=== PATIENT | male | born 1935 | race African-American/Black ===

== ENCOUNTER 2017-04-22 09:05 | Inpatient (IN) | payer OTHER, MEDICAID ==
[~2017-04-22] VITALS: Ht 182.9 cm; Wt 101.6 kg
[~2017-04-22 09:05] MED LIST: ALBUTEROL SULF8.5 GM INH; ASPIR 8181 MG ORAL; BENAZEPRIL HCL40 MG ORAL; CARVEDILOL25 MG ORAL; FUROSEMIDE80 MG ORAL; GUAIFENESIN-CO118 M1 ORAL; GUAIFENESIN-COD10 ML PO; MINOCYCLINE HC100 MG PO; PRAVASTATIN SOD20 M1 ORAL; QVAR7.3 GM INH
[2017-04-22] MEDS ORDERED: TORSEMIDE20 MG ORAL (09:41)
[2017-04-22] MEDS ORDERED: METRONIDAZOLE45 G2 TOPIC (09:41)
[2017-04-22] MEDS ORDERED: BENAZEPRIL HCL10 MG ORAL (09:41)
[2017-04-22] MEDS ORDERED: CARVEDILOL3.125 MG ORAL (09:41)
[2017-04-22] MEDS ORDERED: BRIMONIDINE TART5 ML LEFT EYE (09:41)
[2017-04-22] MEDS ORDERED: PRAVACHOL40 MG ORAL (09:41)
[2017-04-22] MEDS ORDERED: TRAVATAN Z5 ML OP (09:41)
[2017-04-22] MEDS ORDERED: CLARAVIS10 MG PO (09:41)
[2017-04-22] MEDS ORDERED: BAYER BACK & B1 EACH PO (09:41)
[2017-04-22] MEDS ORDERED: Acetaminophen 500mg (ES) tab ORAL ONE (09:45)
--- NOTE | 2017-04-22 09:52 | Emergency Room Report ---
History of Present Illness General Chief Complaint: General Complaint Source: Patient Present Illness HPI Patient is an 81-year-old male presented after increased generalized weakness. He reported having increased gagging sensation. He had increased difficulty breathing. Patient was noted to have prior history of congestive heart failure Allergies: Coded Allergies: No Known Allergies (Verified , 05/20/06) Patient History Reviewed Nursing Documentation: PMH: Agreed, PSxH: Agreed Nursing Documentation-PMH Hx Cardiac Problems: Yes - CHF Hx Hypertension: Yes Hx Cancer: Yes - prostate, colon Review of Systems All Other Systems: negative except mentioned in HPI Physical Exam Vital Signs Date Time Temp Pulse Resp B/P (MAP) Pulse Ox O2 Delivery O2 Flow Rate FiO2 04/22/17 09:28 101.7 99 19 136/75 97 Room Air Sp02 EP Interpretation: reviewed, normal General Appearance: normal inspection, well appearing, no apparent distress, alert, GCS 15 Head: atraumatic ENT: normal ENT inspection, hearing grossly normal, normal voice Neck: normal inspection, full range of motion, supple, no bony tend Respiratory: normal inspection, lungs clear, normal breath sounds, no respiratory distress, no retraction, no wheezing Cardiovascular #1: regular rate, rhythm, no edema Gastrointestinal: normal inspection, normal bowel sounds, non tender, soft, no guarding, no hernia Genitourinary: no CVA tenderness Musculoskeletal: normal inspection, back normal, normal range of motion, swelling Neurologic: normal inspection, alert, oriented x3, responsive, speech normal Psychiatric: normal inspection, judgement/insight normal, mood/affect normal Skin: normal inspection, normal color, no rash Medical Decision Making Diagnostic Impression: Primary Impression: Heart failure Additional Impressions: Acute febrile illness CHF (congestive heart failure) Influenza A ER Course Patient presented for fever and difficulty breathing. Differential diagnosis included wasn't limited to influenza, pneumonia, urinary tract infection, drug fever, allergic reaction, sepsis, cholecystitis, among others.Because of complexity of patient's case laboratory testing and imaging studies were ordered.The patient was noted to be febrile. Influenza A was positive. The patient's BNP was noted be elevated at consistent with prior history of CHF. Dr. Nguyễn Mcguire was contacted for inpatient management. A chest x-ray one view interpreted by [place] showed no evident cardiomegaly or pulmonary infiltrates. Labs Test 04/22/17 10:20 04/22/17 10:30 White Blood Count 7.1 K/UL (4.8-10.8) Red Blood Count 5.34 M/UL (4.70-6.10) Hemoglobin 13.4 G/DL (14.2-18.0) Hematocrit 43.2 % (42.0-52.0) Mean Corpuscular Volume 81 FL (80-99) Mean Corpuscular Hemoglobin 25.2 PG (27.0-31.0) Mean Corpuscular Hemoglobin Concent 31.1 G/DL (32.0-36.0) Red Cell Distribution Width 15.0 % (11.6-14.8) Platelet Count 204 K/UL (150-450) Mean Platelet Volume 9.3 FL (6.5-10.1) Neutrophils (%) (Auto) 76.7 % (45.0-75.0) Lymphocytes (%) (Auto) 10.4 % (20.0-45.0) Monocytes (%) (Auto) 10.3 % (1.0-10.0) Eosinophils (%) (Auto) 0.8 % (0.0-3.0) Basophils (%) (Auto) 1.9 % (0.0-2.0) Urine Color Yellow Urine Appearance Clear Urine pH 7 (4.5-8.0) Urine Specific [place] 1.005 (1.005-1.035) Urine Protein Negative (NEGATIVE) Urine Glucose (UA) Negative (NEGATIVE) Urine Ketones Negative (NEGATIVE) Urine Occult Blood Negative (NEGATIVE) Urine Nitrite Negative (NEGATIVE) Urine Bilirubin Negative (NEGATIVE) Urine Urobilinogen Normal MG/DL (0.0-1.0) Urine Leukocyte Esterase Negative (NEGATIVE) Sodium Level 136 MMOL/L (136-145) Potassium Level 4.0 MMOL/L (3.5-5.1) Chloride Level 98 MMOL/L (98-107) Carbon Dioxide Level 30 MMOL/L (21-32) Blood Urea Nitrogen 10 mg/dL (7-18) Creatinine 1.0 MG/DL (0.55-1.30) Estimat Glomerular Filtration Rate mL/min (>60) Glucose Level 100 MG/DL (74-106) Calcium Level 8.1 MG/DL (8.5-10.1) Total Bilirubin 0.3 MG/DL (0.2-1.0) Aspartate Amino Transf (AST/SGOT) 30 U/L (15-37) Alanine Aminotransferase (ALT/SGPT) 31 U/L (12-78) Alkaline Phosphatase 107 U/L (46-116) Total Creatine Kinase 118 U/L (26-308) Creatine Kinase MB 1.2 NG/ML (0.0-3.6) Creatine Kinase MB Relative Index 1.0 Troponin I 0.016 ng/mL (0.000-0.056) Total Protein 8.3 G/DL (6.4-8.2) Albumin 3.2 G/DL (3.4-5.0) Globulin 5.1 g/dL Albumin/Globulin Ratio 0.6 (1.0-2.7) Lactic Acid Level 1.00 mmol/L (0.66-2.22) Pro-B-Type Natriuretic Peptide 5165 pg/mL (0-125) EKG Diagnostic Results Rate: normal - 96 Rhythm: NSR ST Segments: no acute changes Rhythm Strip Diag. Results EP Interpretation: yes Rhythm: NSR, no PVC's, no ectopy Last Vital Signs Date Time Temp Pulse Resp B/P (MAP) Pulse Ox O2 Delivery O2 Flow Rate FiO2 04/22/17 09:28 101.7 99 19 136/75 97 Room Air Status: unchanged Disposition: ADMITTED INPATIENT Condition: Serious Ferny Richardson Apr 22, 2017 09:52
--- NOTE | 2017-04-22 10:33 | Diagnostic Imaging Report ---
Indication: Reason For Exam: SOB Technique: XRAY Chest 1v. Comparison: 05/17/2015 Findings: The cardiomediastinal silhouette is stable. There are no acute infiltrates. No pleural fluid. Bony structures are unremarkable. Impression: No acute abnormality. Stable chest. .
[2017-04-22 10:44] VITALS: BP 136/75
[2017-04-22 10:59] LABS: BASOPHILS % (AUTO) 1.9 % (0.0-2.0); EOSINOPHILS % (AUTO) 0.8 % (0.0-3.0); LYMPHOCYTES % (AUTO) 10.4 % (20.0-45.0); MEAN CORPUSCULAR HEMOGLOBIN 25.2 PG (27.0-31.0); MEAN CORPUSCULAR HGB CONC 31.1 G/DL (32.0-36.0); MEAN CORPUSCULAR VOLUME 81 FL (80-99); MEAN PLATELET VOLUME 9.3 FL (6.5-10.1); MONOCYTES % (AUTO) 10.3 % (1.0-10.0); NEUTROPHILS % (AUTO) 76.7 % (45.0-75.0); PLATELET COUNT 204 K/UL (150-450); RED BLOOD COUNT 5.34 M/UL (4.70-6.10); WHITE BLOOD COUNT 7.1 K/UL (4.8-10.8)
[2017-04-22] MEDS ORDERED: Albuterol/Ipratropium 3ml neb HHN ONE (11:00)
[2017-04-22 11:12] LABS: APPEARANCE,URINE CLEAR; KETONES,URINE NEGATIVE (NEGATIVE); LEUKOCYTE ESTERASE ,URINE NEGATIVE (NEGATIVE); NITRITE,URINE NEGATIVE (NEGATIVE); PH,URINE 7 (4.5-8.0); PROTEIN,URINE NEGATIVE (NEGATIVE); UROBILINOGEN,URINE NORMAL MG/DL (0.0-1.0)
[2017-04-22 11:28] LABS: ALANINE AMINOTRANSFERASE 31 U/L (12-78); ALBUMIN/GLOBULIN RATIO 0.6 (1.0-2.7); ASPARTATE AMINO TRANSFERASE 30 U/L (15-37); CALCIUM 8.1 MG/DL (8.5-10.1); CHLORIDE 98 MMOL/L (98-107); CKMB 1.2 NG/ML (0.0-3.6); SODIUM 136 MMOL/L (136-145); TOTAL PROTEIN 8.3 G/DL (6.4-8.2)
[2017-04-22] MEDS ORDERED: Oseltamivir 75mg cap ORAL SCH (11:30)
[2017-04-22 12:38] LABS: CARBON DIOXIDE 30 MMOL/L (21-32)
[2017-04-22 13:00] VITALS: BP 140/68
[2017-04-22] MEDS ORDERED: guaiFENesin w/Codeine 5ml Liq ud ORAL PRN (13:00)
[2017-04-22 15:34] VITALS: BP 130/78
--- NOTE | 2017-04-22 17:00 | History and Physical Report ---
DATE OF ADMISSION: 04/22/2017 HISTORY OF PRESENT ILLNESS: The patient is a very pleasant 81-year-old man, who comes to the hospital emergency department from home. He has three days of dry cough and some dry heaves without abby emesis. He was evaluated and found to have influenza A despite having flu vaccine about a month ago. He had high fever and admission was arranged as he appeared quite weak. PAST MEDICAL HISTORY: Hypertension, hyperlipidemia, and congestive heart failure. He has no history of myocardial infarction to his knowledge. He does have some chronic lung disease and he is on inhalers. MEDICATIONS: Reviewed. ALLERGIES: None. SOCIAL HISTORY: He does not drink for the past five years. He quit smoking about 50 years ago. REVIEW OF SYSTEMS: Otherwise unremarkable. He has no present ankle edema or chest pain. He has mild shortness of breath, which is stable. PHYSICAL EXAMINATION: GENERAL: The patient is overweight. VITAL SIGNS: Stable. Temperature of 101.7 and heart rate is 99. HEENT: Head is normocephalic. NECK: He has no jugular venous distention. CHEST: Decreased air entry, but no wheezing or rales. CARDIAC: Rhythm is regular. ABDOMEN: Soft and nontender. Liver and spleen are not enlarged. EXTREMITIES: No clubbing, cyanosis, or edema. DIAGNOSTIC DATA: Chest x-ray is clear. White count and hemoglobin are normal. Urinalysis is negative. Chemistry shows elevated BNP with normal renal function. Albumin is 3.2. IMPRESSION: 1. Acute influenza A despite receiving influenza vaccine. 2. Hypertension, controlled. 3. Hyperlipidemia. 4. Congestive heart failure, controlled. PLAN: The patient will be admitted and placed on antiviral medication and breathing treatments. An echocardiogram will be obtained. Nguyễn Mcguire M.D. DR: KB JOB#: [id number] CC: Nguyễn Mcguire M.D.; Fax#: [phone]
[2017-04-22] MEDS: Qvar 40mcg Inhaler 6.8 gm INH SCH (18:00)
[2017-04-22] MEDS: Albuterol/Ipratropium 3ml neb INH SCH (19:27)
[2017-04-22] MEDS ORDERED: Brimonidine 0.2% Opth Sol LEFT EYE SCH (21:00)
[2017-04-22 22:00] VITALS: BP 138/88
[2017-04-23] MEDS: Albuterol/Ipratropium 3ml neb INH SCH ×3 (01:00→13:54)
[2017-04-23 01:40] VITALS: BP 186/104
[2017-04-23] MEDS: Oseltamivir 75mg cap ORAL SCH ×2 (01:56→10:43)
[2017-04-23 04:00] VITALS: BP 165/106
--- NOTE | 2017-04-23 07:34 | Cardiology Report ---
APPROVED REPORT EXAM: Two-dimensional and M-mode echocardiogram with Doppler and color Doppler. INDICATION SOB M-Mode DIMENSIONS IVSd1.0 (0.7-1.1cm)Left Atrium (MM)4.0 (1.6-4.0cm) LVDd5.2 (3.5-5.6cm)Aortic Root2.8 (2.0-3.7cm) PWd0.9 (0.7-1.1cm)Aortic Cusp Exc.1.6 (1.5-2.0cm) LVDs3.8 (2.5-4.0cm) PWs1.2 cm Normal left ventricular chamber size, systolic function and wall motion. Left ventricular ejection fraction estimated to be 55-60%. No evidence of left ventricular hypertrophy. No evidence of pericardial or pleural effusion. Right cardiac chamber sizes are within normal limits. Mild left atrial enlargement by 2D. Focal aortic valve sclerosis with adequate cusp excursion. Thickened mitral valve leaflets with normal excursion. Mild mitral annulus and aortic root calcification. Pulmonic valve not well visualized. Normal tricuspid valve structure. IVC is not obtainable. A color flow and spectral Doppler study was performed and revealed: No aortic regurgitation. Trace mitral regurgitation. Mitral diastolic velocities suggest reduced left ventricular relaxation c/w diastolic dysfunction. No tricuspid regurgitation.
[2017-04-23 08:00] VITALS: BP 155/96
[2017-04-23 08:10] LABS: BASOPHILS % (AUTO) 2.7 % (0.0-2.0); EOSINOPHILS % (AUTO) 0.2 % (0.0-3.0); LYMPHOCYTES % (AUTO) 23.3 % (20.0-45.0); MEAN CORPUSCULAR HGB CONC 32.1 G/DL (32.0-36.0); MEAN CORPUSCULAR VOLUME 81 FL (80-99); MEAN PLATELET VOLUME 8.5 FL (6.5-10.1); MONOCYTES % (AUTO) 17.4 % (1.0-10.0); NEUTROPHILS % (AUTO) 56.4 % (45.0-75.0); PLATELET COUNT 207 K/UL (150-450); RED BLOOD COUNT 5.27 M/UL (4.70-6.10); RED CELL DISTRIBUTION WIDTH 15.4 % (11.6-14.8); WHITE BLOOD COUNT 5.5 K/UL (4.8-10.8)
[2017-04-23 08:48] LABS: ALANINE AMINOTRANSFERASE 30 U/L (12-78); ALBUMIN/GLOBULIN RATIO 0.6 (1.0-2.7); ANION GAP 8 mmol/L (5-15); ASPARTATE AMINO TRANSFERASE 44 U/L (15-37); CARBON DIOXIDE 31 MMOL/L (21-32); CHLORIDE 99 MMOL/L (98-107); CHOLESTEROL 138 MG/DL (< 200); CHOLESTEROL/HDL RATIO 1.9 (3.3-4.4); POTASSIUM 3.8 MMOL/L (3.5-5.1); PSA TOTAL 0.71 ng/mL (0.13-4.0); SODIUM 138 MMOL/L (136-145); TOTAL PROTEIN 8.2 G/DL (6.4-8.2)
[2017-04-23] MEDS ORDERED: Furosemide 80mg tab ORAL SCH (09:00)
[2017-04-23] MEDS ORDERED: Benazepril 10mg tab ORAL SCH (09:00)
[2017-04-23] MEDS: Qvar 40mcg Inhaler 6.8 gm INH SCH (10:05)
[2017-04-23 10:43] VITALS: BP 155/96
[2017-04-23] MEDS ORDERED: TAMIFLU75 MG ORAL (13:45)
[2017-04-23] MEDS ORDERED: NS 275ml ONE (16:09)
[2017-04-23] MEDS ORDERED: Tubing IV Secondary IV ONE (16:09)
[2017-04-23] MEDS ORDERED: Brimonidine 0.2% Opth Sol LEFT EYE SCH (21:00)
--- NOTE | 2017-04-25 08:56 | Discharge Summary ---
Discharge Summary Hospital Course Date of Admission Apr 22, 2017 at 10:49 Date of Discharge Apr 23, 2017 at 16:10 Admitting Diagnosis ACUTE FEBRILE ILLNESS SILVIA Solis is a 81 year old male who was admitted on Apr 22, 2017 at 10:49 for Acute Febrile Illness,Congestive Heart Failure Hospital Course [id number] Discharge Discharge Disposition Patient was discharged to Home (01) Discharge Diagnoses: Felecia Galvan NP Apr 25, 2017 08:56
--- NOTE | 2017-04-25 16:17 | Discharge Summary 2 SIG ---
DATE OF ADMISSION: 04/22/2017 DATE OF DISCHARGE: 04/23/2017 BRIEF HOSPITAL COURSE: The patient is an 81-year-old male, who presented to ED from home. He has had three days of dry cough and wheezing without any abby emesis. He has past medical history significant for hypertension, hyperlipidemia, and CHF. No history of myocardial infarction to his knowledge. He does have some chronic lung disease and is on inhalers. On evaluation at ED, the patient was febrile, temperature was 101.7 degrees. Chest x-ray done showed no acute abnormality. Influenza screen was positive for influenza A. He was then admitted to telemetry for influenza A. He had received influenza vaccine a month prior. He was started on antiviral medications and breathing treatment. Echocardiogram done showed ejection fraction 55% to 60%. Blood cultures did not isolate any growth. He was eventually discharged home. FINAL DIAGNOSES: 1. Acute influenza A despite receiving influenza vaccine. 2. Hypertension. 3. Hyperlipidemia. 4. Congestive heart failure, controlled. DISPOSITION: The patient was discharged home. DISCHARGE MEDICATIONS: Continue with oseltamivir 75 mg capsule b.i.d. for five days. Refer to medication list. DISCHARGE INSTRUCTIONS: Follow up with PMD in a week. Nguyễn Mcguire M.D. I have been assigned to dictate discharge summary on this account and I was not involved in the patient's management. Felecia Galvan N.P. DR: ADALBERTO JOB#: [id number] CC:
--- NOTE | 2017-05-07 00:27 | Cardiology Report ---
APPROVED REPORT EKG Measurement Heart [id number] Normal sinus rhythm Nonspecific T wave abnormality Abnormal ECG
== END 2017-04-23 16:10 | disposition home or self-care (01) | DRG 195 ==
LOC: EMR 09:50 → EDBEDREQ 10:20 → UNDOADMIN 10:49 → 2E 10:49 → EDBEDREQ 10:55
DX: J09.X2 Influenza due to identified novel influenza A virus with other respiratory manifestations (principal); I50.9 Heart failure, unspecified; E78.5 Hyperlipidemia, unspecified; I10 Essential (primary) hypertension
CPT/HCPCS: 36415; 71010; 80053; 80061; 81003; 82550; 82553; 83605; 83880; 84153; 84443; 84484; 85025; 86710; 87040; 93005; 93306; 94640; 94664; 99285; J7620

== ENCOUNTER 2018-04-22 09:29 | Emergency (ER) | payer MEDICAID, OTHER ==
[~2018-04-22] VITALS: Ht 182.9 cm; Wt 102.1 kg
[~2018-04-22 09:29] MED LIST changes: +BAYER BACK & B1 EACH PO; +BENAZEPRIL HCL10 MG ORAL; +BRIMONIDINE TART5 ML LEFT EYE; +CARVEDILOL3.125 MG ORAL; +CLARAVIS10 MG PO; +METRONIDAZOLE45 G2 TOPIC; +PRAVACHOL40 MG ORAL; +TAMIFLU75 MG ORAL; +TORSEMIDE20 MG ORAL; +TRAVATAN Z5 ML OP
--- NOTE | 2018-04-22 09:59 | Emergency Room Report ---
History of Present Illness General Chief Complaint: Lower Extremity Injury Source: Patient Present Illness HPI 82-year-old male presents ED complaining of left knee pain. States that he twisted his knee yesterday walking down the steps. Denies falling. Complains of pain to his left knee with swelling.. Denies any other injuries. Pain is throbbing, 9 out of 10, nonradiating. Normally walks with a cane. States he is able to bear weight with some difficulty. No other aggravating relieving factors. Denies any other associated symptoms Allergies: Coded Allergies: No Known Allergies (Verified , 05/20/06) Patient History Past Medical History: HTN, CHF, other - colon cancer Past Surgical History: kezia Social History: Denies: smoking, alcohol use, drug use Immunizations: UTD Reviewed Nursing Documentation: PMH: Agreed; PSxH: Agreed Nursing Documentation-PMH Past Medical History: No History, Except For Hx Cardiac Problems: Yes - CHF Hx Hypertension: Yes Hx Cancer: Yes - Colon CA Hx Gastrointestinal Problems: Yes - Cholecystectomy, colon CA Hx Neurological Problems: No Review of Systems All Other Systems: negative except mentioned in HPI Physical Exam Vital Signs Date Time Temp Pulse Resp B/P (MAP) Pulse Ox O2 Delivery O2 Flow Rate FiO2 04/22/18 09:30 97.9 81 18 76/ 97 Room Air Sp02 EP Interpretation: reviewed, normal General Appearance: no apparent distress, alert, GCS 15, non-toxic Head: normocephalic Eyes: bilateral eye normal inspection, bilateral eye PERRL ENT: normal ENT inspection Neck: normal inspection Respiratory: normal inspection Cardiovascular #1: normal inspection Gastrointestinal: normal inspection Rectal: deferred Genitourinary: no CVA tenderness Musculoskeletal: swelling - L knee, tender Neurologic: alert, oriented x3, responsive, motor strength/tone normal, sensory intact, speech normal Psychiatric: normal inspection Skin: normal inspection Lymphatic: normal inspection Procedures Splinting Splinting : Consent: Verbal Pre-Made Type: CHRISTINA wrap Pre-Proc Neuro Vasc Exam: normal Post-Proc Neuro Vasc Exam: normal Patient Tolerated: Well Complications: None Medical Decision Making Diagnostic Impression: Primary Impression: Knee sprain Qualified Codes: S83.92XA - Sprain of unspecified site of left knee, initial encounter ER Course Hospital Course 82 yo M presents to ED c/o L knee pain s/p twisting injury Differential diagnoses include: Fracture, dislocation, sprain, contusion Clinical course Patient placed on stretcher. After initial history and physical, I ordered pain medications and Xrays of L knee Xrays read shows no acute fracture/dislocation. placed in christian wrap, given crutches Discussed findings with patient. Possible sprain. Recommend ice, elevation, analgesics. Nonweightbearing. I'll provide ortho referrals. patient states he has a PMD appointment in 10 days. Diagnosis - knee sprain Stable and discharged to home with prescription for Tylenol #3. apply ice, keep elevated. weight bear as tolerated. Followup with PMD. Return to ED if symptoms recur or worsen Other X-Ray Diagnostic Results Other X-Ray Diagnostic Results : X-Ray ordered: L knee # of Views/Limited Vs Complete: 3 View Indication: Pain EP Interpretation: Yes Interpretation: no dislocation, no soft tissue swelling, no fractures Impression: No acute disease Electronically Signed by: Electronically signed by Janak Ontiveros MD Last Vital Signs Date Time Temp Pulse Resp B/P (MAP) Pulse Ox O2 Delivery O2 Flow Rate FiO2 04/22/18 09:30 97.9 81 18 76/ 97 Room Air Status: improved Disposition: HOME, SELF-CARE Condition: Stable Scripts Acetaminophen With Codeine (T#3) (TYLENOL #3 TAB*) Y Tab 1 TAB ORAL Q8H PRN for For Pain for 3 Days, TAB Prov: Janak Ontiveros MD 04/22/18 Janak Ontiveros MD Apr 22, 2018 09:59
[2018-04-22] MEDS ORDERED: Tylenol #3 tab (300mg/30mg) PO ONE (10:00)
--- NOTE | 2018-04-22 10:36 | Diagnostic Imaging Report ---
LEFT KNEE, Views INDICATION: Pain COMPARISON: None FINDINGS: 3 views of the left knee are obtained. 7 mm quadriceps enthesophyte. Chondrocalcinosis. Bony structures are intact. Bone mineralization is within normal limits. Joint spaces are preserved. Soft tissues are within normal limits. No radio-opaque foreign bodies. IMPRESSION: No acute fracture or subluxation identified.
[2018-04-22] MEDS ORDERED: ACETAMINOPHEN-1 EAC1 ORAL (10:39)
[2018-04-22 10:48] VITALS: BP 128/78
== END 2018-04-22 10:51 | disposition home or self-care (01) ==
LOC: EMR 09:55
DX: S83.92XA Sprain of unspecified site of left knee, initial encounter (principal); X50.1XXA Overexertion from prolonged static or awkward postures, initial encounter; Y92.9 Unspecified place or not applicable; I11.0 Hypertensive heart disease with heart failure; I50.9 Heart failure, unspecified; Z85.038 Personal history of other malignant neoplasm of large intestine; Z90.49 Acquired absence of other specified parts of digestive tract
CPT/HCPCS: 99284